=== PATIENT | male | born 1975 | race Two or more races ===

== ENCOUNTER 2023-12-26 09:11 | Outpatient (CLI) | payer OTHER | END 2023-12-26 09:34 | disposition home or self-care (01) | LOC: MRI 09:11 | DX: Z13.1 Encounter for screening for diabetes mellitus (principal); Z13.220 Encounter for screening for lipoid disorders; Z13.29 Encounter for screening for other suspected endocrine disorder; Z11.3 Encounter for screening for infections with a predominantly sexual mode of transmission; Z12.11 Encounter for screening for malignant neoplasm of colon; Z11.9 Encounter for screening for infectious and parasitic diseases, unspecified; Z13.21 Encounter for screening for nutritional disorder; Z13.828 Encounter for screening for other musculoskeletal disorder; Z12.5 Encounter for screening for malignant neoplasm of prostate; M54.50 Low back pain, unspecified; H54.3 Unqualified visual loss, both eyes; Z68.20 Body mass index [BMI] 20.0-20.9, adult | CPT/HCPCS: 72148 ==

== ENCOUNTER 2024-10-16 07:43 | Outpatient (CLI) | payer OTHER ==
[~2024-10-16 07:43] MED LIST: DICLOFENAC POTA50 MG PO
== END 2024-10-16 07:46 | disposition home or self-care (01) ==
LOC: SONOGRAMA 07:43
DX: Z11.3 Encounter for screening for infections with a predominantly sexual mode of transmission (principal); Z12.11 Encounter for screening for malignant neoplasm of colon; Z13.21 Encounter for screening for nutritional disorder; Z13.0 Encounter for screening for diseases of the blood and blood-forming organs and certain disorders involving the immune mechanism; Z13.1 Encounter for screening for diabetes mellitus; Z13.220 Encounter for screening for lipoid disorders; Z13.29 Encounter for screening for other suspected endocrine disorder; Z12.5 Encounter for screening for malignant neoplasm of prostate; N39.0 Urinary tract infection, site not specified; Z13.9 Encounter for screening, unspecified

== ENCOUNTER 2024-11-11 11:47 | Outpatient (CLI) | payer OTHER | END 2024-11-11 11:48 | disposition home or self-care (01) | LOC: SONOGRAMA 11:47 | DX: R80.0 Isolated proteinuria (principal); K64.8 Other hemorrhoids; R80.1 Persistent proteinuria, unspecified; R80.9 Proteinuria, unspecified ==

== ENCOUNTER 2025-03-11 09:40 | Outpatient (CLI) | payer OTHER | END 2025-03-11 09:50 | disposition home or self-care (01) | LOC: RAD 09:40 | PROVIDERS: ATTEND General Practice | DX: M54.50 Low back pain, unspecified (principal); M54.16 Radiculopathy, lumbar region ==